=== PATIENT | female | born 1950 | race Caucasian/White ===

== ENCOUNTER → 2016-08-25 | Outpatient (CLI) | payer OTHER ==
[2015-01-19 17:34] VITALS: BP 141/74
[~2016-08-25] MED LIST: CIPR500T94 PO; HYDR2TAB13 PO; KETO10TA PO; ONDA4TAB10 SL; PROM12.554 RC; PROM12.56 PO; TAMS0.4C97 PO
--- NOTE | 2016-08-25 12:13 | RAD ---
Renal ultrasound, 08/25/2016: History: Renal calculi The right kidney measures 9.4 cm in length while the left kidney measures 10.7 cm. Three small cysts are noted in the right kidney. The largest of these measures 1 cm. Two small cysts are evident in the left kidney with the largest of these measuring 1.3 cm. Two foci of increased echogenicity with posterior acoustic shadowing are evident on the left compatible with nonobstructing intrarenal calculi. The largest of these measures 6 mm. A single 6 mm calculus is seen in the upper pole of the right kidney. There is no evidence of hydronephrosis. The urinary bladder is collapsed and not adequately delineated. IMPRESSION: 1. Small bilateral renal cysts. 2. Small bilateral nonobstructing intrarenal calculi.
== END | disposition home or self-care (01) ==
LOC: US 09:42
PROVIDERS: ATTEND Urology
DX: N20.0 Calculus of kidney (principal); N28.1 Cyst of kidney, acquired
CPT/HCPCS: 76770

== ENCOUNTER → 2018-01-06 | Outpatient (CLI) | payer MEDICARE, OTHER ==
[2015-01-19 17:34] VITALS: BP 141/74
[~2018-01-06] MED LIST changes: -HYDR2TAB13 PO; +HYDR2TAB31 PO
--- NOTE | 2018-01-06 16:14 | RAD ---
Renal ultrasound, 01/06/2018: HISTORY: Right flank pain, recurrent kidney stones The right kidney measures 10.0 cm in length while left kidney measures 10.6 cm. There is a 1.6 cm echogenic focus in the right renal pelvis with posterior acoustic shadowing, compatible with a renal calculus. Several additional smaller scattered echogenic foci in the right kidney are also probably calculi. The right renal collecting system is mildly dilated. On the previous study 08/25/2016 there was a single smaller 6 mm right renal calculus without hydronephrosis. A 9 mm right renal cyst is noted. No left renal calculi are currently seen. There is a 1.1 cm cyst in the left kidney. Limited views of urinary bladder are unremarkable. Bilateral ureteral jets are noted. IMPRESSION: 1. Moderate sized calculus in the right renal pelvis with mild associated right hydronephrosis. 2. Several additional smaller right renal calculi are noted. 3. Small bilateral renal cysts. Electronically signed by: Abner Read MD (01/06/2018 3:29 PM) [facility]
== END | disposition home or self-care (01) ==
LOC: US 13:41
PROVIDERS: ATTEND Physician Assistant
DX: N20.0 Calculus of kidney (principal); N13.39 Other hydronephrosis; N28.1 Cyst of kidney, acquired; Z90.89 Acquired absence of other organs
CPT/HCPCS: 76770